=== PATIENT | male | born 1950 | race Caucasian/White ===

== ENCOUNTER 2017-01-17 12:06 | Emergency (ER) | payer MEDICARE, OTHER ==
[2017-01-17] MEDS ORDERED: Sodium Chloride 0.9% 1000 ML 1,000 ML IV STA (12:23)
[2017-01-17] MEDS ORDERED: Transderm Scop 1.5MG Patch TOP ONE (12:23)
[2017-01-17] MEDS ORDERED: ANTIVERT 25 MG PO ONE (12:23)
[2017-01-17] MEDS ORDERED: Ear Wax Drops OT ONE (12:30)
--- NOTE | 2017-01-17 12:30 | ERPHSYRPT ---
- History of Present Illness Time Seen by Provider: 01/17/17 12:08 Source: patient Exam Limitations: no limitations Patient Subjective Stated Complaint: lightheadedness for 2 days Triage Nursing Assessment: states has been lightheaded for 2 dauys--worse with change of poistion. denies pain or injury. normal oral intake. denies probs with bladder/bowels. skin warm and dry. pupils jefry Physician History: patient has developed vertigo for past two days after laying on floor and doing stretches when he gets up; light headed; room spins; has to hold on; No N&V; no trauma or MESA; no recent travels or exposures; no visual changes; no prior hx; no tinitis; exacerbated by movement of head Timing/Duration: today (worse), yesterday (onset), intermittent, sudden Severity: moderate Modifying Factors: Improves With: other (position changes) Associated Symptoms: other (light headewd and vertigo) Allergies/Adverse Reactions: No Known Drug Allergies Allergy (Verified 01/17/17 12:18) Home Medications: Loratadine 10 mg [Claritin 10 mg] 1 tab PO DAILY 05/12/13 [History] Lisinopril 5 mg [Zestril 5 MG] 20 mg PO DAILY 01/10/16 [History] Simvastatin 10 mg PO DAILY 01/17/17 [History] Hx Tetanus, Diphtheria Vaccination/Date Given: Yes Hx Influenza Vaccination/Date Given: No Hx Pneumococcal Vaccination/Date Given: No Immunizations Up to Date: Yes - Review of Systems Constitutional: Other (vertigo) Eyes: No Symptoms Ears, Nose, & Throat: No Symptoms Respiratory: No Cough, No Dyspnea, No Wheezing Cardiac: No Chest Pain, No Palpitations, No Syncope, No Orthopnea Abdominal/Gastrointestinal: No Abdominal Pain, No Nausea, No Vomiting, No Diarrhea Genitourinary Symptoms: No Dysuria, No Frequency, No Hematuria, No Hesitancy, No Incontinence Musculoskeletal: No Symptoms Skin: No Symptoms Neurological: Dizziness, Vertigo, No Focal Weakness, No Gait Changes, No Headache, No Irritability, No Paralysis, No Seizure, No Sensory Changes, No Speech Changes, No Tremors Psychological: No Symptoms Endocrine: No Symptoms Hematologic/Lymphatic: No Symptoms Immunological/Allergic: No Symptoms - Past Medical History Pertinent Past Medical History: Yes Neurological History: Dementia ENT History: No Pertinent History Cardiac History: High Cholesterol, Hypertension Respiratory History: No Pertinent History Endocrine Medical History: No Pertinent History Musculoskeletal History: No Pertinent History GI Medical History: No Pertinent History History: No Pertinent History Psycho-Social History: No Pertinent History Male Reproductive Disorders: No Pertinent History - Past Surgical History Past Surgical History: Yes Neuro Surgical History: No Pertinent History Cardiac: No Pertinent History Respiratory: No Pertinent History Gastrointestinal: No Pertinent History Genitourinary: No Pertinent History Musculoskeletal: Orthopedic Surgery Male Surgical History: No Pertinent History Other Surgical History: 1968 right shoulder pin,2009 verónica knee arthrosc. , - Social History Smoking Status: Never smoker How long have you smoked: 30 yrs Exposure to second hand smoke: No Alcohol Use: None Drug Use: none Patient Lives Alone: Yes Significant Family History: no pertinent family hx - Nursing Vital Signs Nursing Vital Signs: Initial Vital Signs Temperature 98.5 F Temperature Source Oral Pulse Rate 74 Respiratory Rate 18 Pain Intensity 0 - Physical Exam General Appearance: mild distress, alert, thin Eye Exam: PERRL/EOMI, eyes nml inspection, other (no nystagmus; no papiledema; fundi benign; vision ok; ), No photophobia Ears, Nose, Throat Exam: normal ENT inspection, TMs normal, pharynx normal, moist mucous membranes, other (wax build up left ear) Neck Exam: normal inspection, non-tender, supple, full range of motion, No meningismus, No carotid bruit, No JVD Respiratory Exam: normal breath sounds, lungs clear, airway intact, No chest tenderness, No respiratory distress, No crackles/rales, No rhonchi, No wheezing Cardiovascular Exam: regular rate/rhythm, normal heart sounds, normal peripheral pulses, capillary refill <2 sec, No murmur Gastrointestinal/Abdomen Exam: soft, normal bowel sounds, No tenderness, No distention, No mass, No guarding, No organomegaly Rectal Exam: deferred Back Exam: normal inspection, normal range of motion, No CVA tenderness, No rash Extremity Exam: normal inspection, normal range of motion, No roverto's sign, No pedal edema Neurologic Exam: alert, oriented x 3, 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, 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 as tested, normal mood/affect, nml cerebellar function, nml station & gait Skin Exam: normal color, warm, dry, No rash, No petechiae Lymphatic Exam: No adenopathy SpO2 Interpretation: normal SpO2: 96 Oxygen Delivery: Room Air Procedures - Additional Procedures Progress: ear irrigation and removal for cerumen impaction left ear; cerumenex applied; irrigated with warm saline and H2O2 mixture; large hard cerumen impaction revoved; patietn tolerated well; exam after showed intact TM with no wax and good hearing - Course Nursing assessment & vital signs reviewed: Yes EKG Interpreted by Me: RATE (64), Sinus Rhythm, NORMAL AXIS, NORMAL INTERVALS, NORMAL QRS, Non-specific ST Changes, Other (unchanged from 05-05-13) Rhythm Strip: Rate (62), Normal Sinus Rhythm Ordered Tests: Active Orders 24 hr Category Date Time Status Accucheck STAT Care 01/17/17 12:23 Active EKG-ER Only STAT Care 01/17/17 12:23 Active IV Insertion STAT Care 01/17/17 12:23 Active Orthostatic Vital Signs STAT Care 01/17/17 12:23 Active HEAD WITHOUT CONTRAST [CT] Stat Exams 01/17/17 12:23 Completed BMP Stat Lab 01/17/17 12:45 Completed CBC W DIFF Stat Lab 01/17/17 12:45 Completed Ethyl Alcohol,Urine Stat Lab 01/17/17 12:23 Ordered Medication Summary Generic Name Dose Route Start Last Admin Trade Name Freq PRN Reason Stop Dose Admin Sodium Chloride 1,000 mls @ 250 mls/hr 01/17/17 12:23 01/17/17 12:38 Sodium Chloride 0.9% 1000 Ml IV 01/17/17 16:22 250 mls/hr .Q4H STA Administration Discontinued Medications Generic Name Dose Route Start Last Admin Trade Name Freq PRN Reason Stop Dose Admin Carbamide Perox/Anhydrous Glycerin 1 ml 01/17/17 12:31 01/17/17 12:38 Ear Wax Drops OT 01/17/17 12:32 1 ml UD STA Administration Carbamide Perox/Anhydrous Glycerin Confirm 01/17/17 12:30 Ear Wax Drops Administered 01/17/17 12:31 Dose 15 ml OT .STK-MED ONE Hydrogen Peroxide 30 ml 01/17/17 13:21 01/17/17 13:49 Peroxide 3% TOP 01/17/17 13:22 30 ml UD STA Administration Hydrogen Peroxide Confirm 01/17/17 13:22 Peroxide 3% Administered 01/17/17 13:23 Dose 237 ml .ROUTE .STK-MED ONE Sodium Chloride Confirm 01/17/17 12:36 Sodium Chloride 0.9% 1000 Ml Administered 01/17/17 12:37 Dose 1,000 mls @ ud .ROUTE .STK-MED ONE Meclizine HCl 25 mg 01/17/17 12:23 01/17/17 12:38 Antivert 25 Mg PO 01/17/17 12:24 25 mg STAT ONE Administration Meclizine HCl Confirm 01/17/17 12:35 Antivert 25 Mg Administered 01/17/17 12:36 Dose 25 mg .ROUTE .STK-MED ONE Scopolamine HBr 1.5 mg 01/17/17 12:23 01/17/17 12:38 Transderm Scop 1.5mg Patch TOP 01/17/17 12:24 1.5 mg STAT ONE Administration Lab/Rad Data: Laboratory Result Diagrams 01/17/17 12:45 01/17/17 12:45 Laboratory Results 01/17/17 01/17/17 Range/Units 12:45 12:45 WBC 6.3 (4.0-10.5) K/mm3 RBC 4.66 (4.1-5.6) M/mm3 Hgb 14.5 (12.5-18.0) gm/dl Hct 43.1 (42-50) % MCV 92.5 (78-100) fl MCH 31.1 (26-32) pg MCHC 33.6 (32-36) g/dl RDW 13.5 (11.5-14.0) % Plt Count 197 (150-450) K/mm3 MPV 11.4 H (6-9.5) fl Gran % 60.0 (36.0-66.0) % Lymphocytes % 27.2 (24.0-44.0) % Monocytes % 10.3 (0.0-12.0) % Eosinophils % 2.2 (0.00-5.0) % Basophils % 0.3 (0.0-0.4) % Basophils # 0.02 (0-0.4) Sodium 142 (136-145) mEq/L Potassium 4.0 (3.5-5.1) mEq/L Chloride 106 (98-107) mEq/L Carbon Dioxide 28.6 (21-32) mEq/L Anion Gap 11.7 (5-15) MEQ/L BUN 22 H (9-20) mg/dL Creatinine 1.41 H (0.55-1.30) mg/dl Estimated GFR 53 ML/MIN Glucose 96 (70-110) MG/DL Calcium 9.3 (8.5-10.1) mg/dL reviewed - Progress Progress: improved, re-examined (after CT) Progress Note: 01/17/17 12:31 will check OSVS and will give IV fluids; put ear wax softner in ear and irrigate later; will give meds, get labs and CT and recheck 01/17/17 12:51 OSVS ok; slight symptomatic with change in position; EKG - NAD; no arrythmia or acute ST changes 01/17/17 13:18 continues to improve; labs ok except mildly elevated Cr at 1.41; CT ok; EKG ok 01/17/17 14:10 cerumen impaction removed; TM ok after; vertigo resolved; d/c instructions given Counseled pt/family regarding: lab results, diagnosis, need for follow-up, rad results - Departure Time of Disposition: 14:10 Departure Disposition: Home Clinical Impression: Acute epidemic vertigo, Impacted cerumen of left ear Condition: Stable Critical Care Time: No Instructions: Vertigo Additional Instructions: wear ear patch for three days Follow-up with family doctor as directed. Call for appointment. Return if any problems. If you smoke please stop. Call or follow up with your family doctor for assistance if you need it to stop. Please wear your seatbelt when driving. Have a nice day. Thank you for allowing us to participate in your care today. :o) Dr Bennie Hernandez
[2017-01-17] MEDS ORDERED: Ear Wax Drops OT STA (12:31)
[2017-01-17] MEDS ORDERED: ANTIVERT 25 MG ONE (12:35)
[2017-01-17] MEDS ORDERED: Sodium Chloride 0.9% 1000 ML 1,000 ML ONE (12:36)
[2017-01-17 12:56] LABS: BASOPHIL % 0.3 % (0.0-0.4); Eosinophil % 2.2 % (0.00-5.0); Lymphocytes % 27.2 % (24.0-44.0); Mean Cell Volume 92.5 fl (78-100); Mean Corpuscular Hemoglobin 31.1 pg (26-32); Mean Platelet Volume 11.4 fl (6-9.5); Monocytes % 10.3 % (0.0-12.0); Platelet Count 197 K/mm3 (150-450); Red Blood Count 4.66 M/mm3 (4.1-5.6); Red Cell Distribution Width 13.5 % (11.5-14.0); White Blood Count 6.3 K/mm3 (4.0-10.5)
--- NOTE | 2017-01-17 12:56 | XRAY ---
Indication: Acute vertigo. Multiple contiguous axial images obtained through the head without contrast. Comparison: None Normal appearing brain parenchyma, ventricles, and bony calvarium. Visualized paranasal sinuses and mastoid air cells are clear. Impression: Normal CT head without contrast exam. CT DI 91.63
[2017-01-17 13:09] LABS: ANION GAP 11.7 MEQ/L (5-15); Carbon Dioxide 28.6 mEq/L (21-32)
[2017-01-17] MEDS ORDERED: PEROXIDE 3% TOP STA (13:21)
[2017-01-17] MEDS ORDERED: PEROXIDE 3% ONE (13:22)
[2017-01-17 14:18] VITALS: BP 135/70; PULSE 68; O2SAT 97
== END 2017-01-17 14:17 | disposition home or self-care (01) ==
LOC: ED 12:06
DX: A88.1 Epidemic vertigo (principal); H61.22 Impacted cerumen, left ear; E78.00 Pure hypercholesterolemia, unspecified; I10 Essential (primary) hypertension; Z79.899 Other long term (current) drug therapy
CPT/HCPCS: 36000; 36415; 70450; 80048; 82962; 85025; 93005; 96360; 96361; 99284; 99285; A9270-GY

== ENCOUNTER 2024-02-10 07:24 | Day surgery (SDC) | payer MEDICARE, OTHER ==
[2024-02-10] MEDS ORDERED: Lactated Ringers 1,000 ML IV ONE (07:55)
[2024-02-10] MEDS: Lactated Ringers 1,000 ML IV SCH (08:03)
--- NOTE | 2024-02-10 08:03 | HP ---
HISTORY OF PRESENT ILLNESS: A 73-year-old. Last colonoscopy 5 to 10 years ago. Prior polyps in the past. No bloody stools. No change in bowel movements. No new pain. Family history negative for colon cancer. 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 PAST SURGICAL HISTORY: Had colonoscopy in the past, knee replacement in the past, had cystoscopy for bladder cancer in the past, had shoulder surgery, and kidney procedure per IR in the past. FAMILY HISTORY: In regard to this problem, no colon cancer. SOCIAL HISTORY: Former smoker. Does drink a couple beers a day. MEDICATIONS: Include tamsulosin, simvastatin, levocetirizine, lisinopril, amlodipine. ALLERGIES: No known drug allergies. REVIEW OF SYSTEMS: Twelve systems reviewed. Pertinent for other medical problems as noted above. No chest pain or palpitations. Other systems negative or noncontributory as above and per preadmission questionnaire. PHYSICAL EXAMINATION: VITAL SIGNS: Height 5 feet 9 inches. BMI 29.5. GENERAL: No acute distress. HEENT: Sclerae nonicteric. Extraocular movements intact. NECK: No JVD. CHEST: Equal excursion, nonlabored breathing. CARDIOVASCULAR: Regular rate and rhythm. ABDOMEN: Soft. EXTREMITIES: No cyanosis or edema. NEUROLOGIC: Alert and oriented, moving all extremities symmetrically. PSYCHIATRIC: Appropriate mood and affect. SKIN: Dry. RECTAL: Deferred until the time of endoscopy. IMPRESSION: History of polyps in the past. Needs followup screening colonoscopy. Showed him the risk sheet. Risks explained in detail including but not limited to bleeding or infection, risk of bowel injury or perforation possibly requiring other procedures, risk of missed or nondiagnosis, risk of incomplete exam possibly requiring barium enema or possible need for other procedures or referral, risk of sedation or anesthesia, risk of bowel prep but not limited to. We will proceed with outpatient colonoscopy under MAC anesthesia. Otherwise, continue medications for hypertension, hyperlipidemia.
[2024-02-10] MEDS ORDERED: DIPRIVAN 200 MG/20 ML IV ONE ×2 (09:04→09:29)
[2024-02-10 10:13] VITALS: TEMP 97.6; O2SAT 97
[2024-02-10 10:16] VITALS: BP 138/78; PULSE 78; RESP 18
--- NOTE | 2024-02-11 09:17 | OP ---
SURGERY DATE/TIME: 02/10/2024 [id number] PREOPERATIVE DIAGNOSIS: Needs followup screening colonoscopy, prior history of polyp. POSTOPERATIVE DIAGNOSES: 1) Polyps, transverse colon. 2) Small raised lesion versus hyperplasia of the sigmoid colon. 3) ASA class 2. 4) Withdrawal time was approximately 10 minutes. 5) Prep was fair. PROCEDURES: 1) Colonoscopy to cecum. 2) Hot snare polypectomy, transverse colon polyps x3 (ranging in size from about 3 to 6 mm). 3) Hot biopsy removal of small raised lesion versus hyperplasia versus early polyp, sigmoid colon. SURGEON: Palomo Morales MD ANESTHESIA: MAC. ESTIMATED BLOOD LOSS: Minimal. INDICATIONS: Consent obtained. DESCRIPTION OF PROCEDURE AND FINDINGS: Patient was taken to the endoscopy room. MAC anesthesia introduced. After official time-out and no disagreement with planned procedure, digital rectal exam did not reveal any rectal masses. Videocolonoscope inserted and passed up through the tortuous sigmoid, descending, transverse, ascending colon around to the cecum. Appendiceal orifice was not well visualized and photo documented. Scope was carefully withdrawn over the next 10 minutes. Found in the transverse colon, there were 2 polyps in the more proximal transverse colon ranging in size from 3 mm to about 5 or 6 mm, removed with hot snare polypectomy and brief bursts of cautery. Good hemostasis noted. Scope was then carefully pulled back. A little bit further downstream in the transverse colon, another polyp was about 3 or 4 mm, removed with hot snare polypectomy and brief bursts of cautery and hot snare with removal. Scope pulled back. In the sigmoid colon, there was a small/little vague raise lesion where this was a very early hyperplastic lesion versus hyperplastic mucosa versus normal variation, removed with hot biopsy and forceps. Good hemostasis noted. Otherwise, no signs of any other large polyps, masses, or obstructing lesions. Prep overall was fair with a little bit of semi liquidy stool throughout the colon. Suctioned, irrigated clear as possible. Patient tolerated the procedure well. There were no immediate complication. There was no family available to discuss any findings out in the waiting area.
== END 2024-02-10 10:24 | disposition home or self-care (01) ==
LOC: SDC 07:24
PROVIDERS: ATTEND Surgery
DX: Z12.11 Encounter for screening for malignant neoplasm of colon (principal); Z09 Encounter for follow-up examination after completed treatment for conditions other than malignant neoplasm; Z86.010 Personal history of colon polyps; Z85.51 Personal history of malignant neoplasm of bladder; D12.5 Benign neoplasm of sigmoid colon; D12.3 Benign neoplasm of transverse colon
CPT/HCPCS: 99100; J2704